=== PATIENT | female | born 1985 | race Caucasian/White ===

== ENCOUNTER 2019-07-18 08:30 | Emergency (ER) | payer BC ==
[~2019-07-18] VITALS: Ht 162.6 cm; Wt 78.0 kg
[2019-07-18 08:40] VITALS: BP 150/98; Ht 162.6 cm; Wt 78.0 kg
== END 2019-07-18 08:56 | disposition home or self-care (01) ==
LOC: ED 08:30
DX: Z76.0 Encounter for issue of repeat prescription (principal); I10 Essential (primary) hypertension

== ENCOUNTER 2019-08-21 01:14 | Inpatient (IN) | payer MEDICAID ==
[~2019-08-21] VITALS: Ht 162.6 cm; Wt 77.1 kg
[2019-08-21 01:40] VITALS: Ht 162.6 cm; Wt 77.1 kg
[2019-08-21 02:09] LABS: BASOPHIL % 0.6 % (0-2); RED CELL DISTRIBUTION WIDTH 12.3 % (11.5-14.5)
[2019-08-21 02:17] LABS: ALBUMIN 3.8 g/dL (3.4-5.0); ALKALINE PHOSPHATASE 87 U/L (46-116); ALT/SGPT 145 U/L (14-59); AST/SGOT 237 U/L (15-37); BILIRUBIN TOTAL 2.24 mg/dL (0.20-1.00); CALCIUM 8.9 mg/dL (8.5-10.1); CARBON DIOXIDE 29.1 mmol/L (21-32); CHLORIDE SERUM 82 mmol/L (98-107); CREATININE SERUM 0.9 mg/dL (0.6-1.0); GFR1 > 60 mL/min; GLUCOSE SERUM 113 mg/dL (74-106); LIPASE 231 IU/L (73-393)
[2019-08-21 02:20] LABS: TOTAL PROTEIN, SERUM 8.5 g/dL (6.4-8.2)
[2019-08-21 02:21] LABS: SODIUM SERUM 123 mmol/L (136-145)
[2019-08-21 02:22] LABS: POTASSIUM SERUM 2.4 mmol/L (3.5-5.1)
[2019-08-21] MEDS ORDERED: LISINOPRIL-HYDR1 TA4 PO (02:50)
[2019-08-21 03:21] LABS: PLATELET COUNT 403 x10^3mcL (130-400)
[2019-08-21 04:11] VITALS: BP 147/90
[2019-08-21 05:15] LABS: UA SPECIFIC GRAVITY <=1.005 (1.005-1.035); microscopic required? YES; urine erythrocyte TRACE (NEGATIVE)
[2019-08-21 05:25] LABS: AMPHETAMINE QUAL UR NONE DETECTED (See below)
[2019-08-21 06:31] LABS: BASOPHIL % 0.3 % (0-2); PLATELET COUNT 317 x10^3mcL (130-400); RED CELL DISTRIBUTION WIDTH 12.9 % (11.5-14.5)
[2019-08-21 06:33] VITALS: BP 138/80
[2019-08-21 06:50] LABS: CALCIUM 7.9 mg/dL (8.5-10.1); CARBON DIOXIDE 29.4 mmol/L (21-32); CHLORIDE SERUM 88 mmol/L (98-107); CREATININE SERUM 0.8 mg/dL (0.6-1.0); GFR1 > 60 mL/min; GLUCOSE SERUM 81 mg/dL (74-106); MAGNESIUM 1.3 mg/dL (1.8-2.4); PHOSPHOROUS 2.9 mg/dL (2.5-4.9); SODIUM SERUM 128 mmol/L (136-145)
[2019-08-21 06:54] LABS: POTASSIUM SERUM 2.4 mmol/L (3.5-5.1)
[2019-08-21 07:52] VITALS: BP 122/74
[2019-08-21 08:57] LABS: ALBUMIN 3.8 g/dL (3.4-5.0); BILIRUBIN DIRECT 1.17 mg/dL (0.0-0.2)
[2019-08-21 09:05] LABS: TOTAL PROTEIN, SERUM 8.5 g/dL (6.4-8.2)
[2019-08-21 12:09] VITALS: BP 114/74
[2019-08-21 15:19] LABS: CALCIUM 8.2 mg/dL (8.5-10.1); CARBON DIOXIDE 28.7 mmol/L (21-32); CHLORIDE SERUM 94 mmol/L (98-107); CREATININE SERUM 0.9 mg/dL (0.6-1.0); GFR1 > 60 mL/min; GLUCOSE SERUM 89 mg/dL (74-106); POTASSIUM SERUM 3.4 mmol/L (3.5-5.1); SODIUM SERUM 131 mmol/L (136-145)
[2019-08-21 17:24] VITALS: BP 114/75
[2019-08-21 20:33] VITALS: BP 111/75
[2019-08-22 05:44] VITALS: BP 107/54
[2019-08-22 06:32] LABS: BASOPHIL % 0.2 % (0-2); PLATELET COUNT 264 x10^3mcL (130-400)
[2019-08-22 06:44] LABS: ALKALINE PHOSPHATASE 68 U/L (46-116); ALT/SGPT 134 U/L (14-59); AST/SGOT 214 U/L (15-37); BILIRUBIN TOTAL 1.1 mg/dL (0.20-1.00); CALCIUM 7.6 mg/dL (8.5-10.1); CARBON DIOXIDE 25.4 mmol/L (21-32); CHLORIDE SERUM 99 mmol/L (98-107); CREATININE SERUM 0.7 mg/dL (0.6-1.0); GFR1 > 60 mL/min; GLUCOSE SERUM 80 mg/dL (74-106); MAGNESIUM 1.9 mg/dL (1.8-2.4); PHOSPHOROUS 1.7 mg/dL (2.5-4.9); POTASSIUM SERUM 3.6 mmol/L (3.5-5.1); SODIUM SERUM 133 mmol/L (136-145); TOTAL PROTEIN, SERUM 6.9 g/dL (6.4-8.2)
[2019-08-22] MEDS ORDERED: OMEPRAZOLE MAGN20 M1 PO (08:18)
[2019-08-22 08:29] VITALS: BP 115/78
[2019-08-22 09:15] LABS: CHOLESTEROL/HDL RATIO 2.4
[2019-08-22 10:08] VITALS: BP 115/78
== END 2019-08-22 11:05 | disposition home or self-care (01) | DRG 249 ==
LOC: ED 01:14 → DU 03:29
PROVIDERS: Emergency Medicine; ADMIT Family Medicine
DX: A08.4 Viral intestinal infection, unspecified (principal); E87.1 Hypo-osmolality and hyponatremia; E87.8 Other disorders of electrolyte and fluid balance, not elsewhere classified; K76.0 Fatty (change of) liver, not elsewhere classified; E87.6 Hypokalemia; R74.0 Nonspecific elevation of levels of transaminase and lactic acid dehydrogenase [LDH]; I10 Essential (primary) hypertension; L40.9 Psoriasis, unspecified; Z68.29 Body mass index [BMI] 29.0-29.9, adult; Z82.49 Family history of ischemic heart disease and other diseases of the circulatory system
CPT/HCPCS: G0378; J2270; J2405; J3475; J3480; J7030; J7050; Q0092